=== PATIENT | male | born 1955 | race Caucasian/White ===

== ENCOUNTER 2017-05-10 09:04 | Outpatient (CLI) | payer BC ==
--- NOTE | 2017-05-10 10:55 | RAD ---
LUMBAR SPINE SERIES 4 VIEWS: HISTORY: Back pain with bilateral leg pain. FINDINGS: The vertebral bodies are normal in height. There is fairly pronounced disk narrowing at L3-4 and L4- 5. There is minimal retrolisthesis at both of these levels. The patient shows only limited motion i n flexion or extension. There are degenerative facet changes. Postop laminectomy changes are seen a t these levels. IMPRESSION: 1. Postoperative changes and degenerative changes at the L3-4 and L4-5 levels. 2. Minimal disk narrowing is also seen at L2-3. POS: ENZO
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
== END 2017-05-10 09:05 | disposition home or self-care (01) ==
LOC: TBSIIMAG 09:04
PROVIDERS: ATTEND Surgery
DX: M47.26 Other spondylosis with radiculopathy, lumbar region (principal); M54.6 Pain in thoracic spine; Z98.890 Other specified postprocedural states
CPT/HCPCS: 72120; 72146; 72158; 82565

== ENCOUNTER 2019-02-03 11:17 | Emergency (ER) | payer BC ==
[2019-02-03] MEDS ORDERED: Adacel (T-DAP) 0.5 ML SYRINGE ONE (11:45)
--- NOTE | 2019-02-03 11:57 | RAD ---
EXAM: 2 views of the right tibia/fibula HISTORY: Leg pain COMPARISON: None FINDINGS: There is no evidence of acute fracture or dislocation. No soft tissue swelling is seen. No degenerative changes are seen in the knee or ankle. IMPRESSION: No evidence of acute osseous abnormality.
== END 2019-02-03 12:15 | disposition home or self-care (01) ==
LOC: SCSER 11:17
DX: S81.811A Laceration without foreign body, right lower leg, initial encounter (principal); Z23 Encounter for immunization; W01.0XXA Fall on same level from slipping, tripping and stumbling without subsequent striking against object, initial encounter
CPT/HCPCS: 12002; 90471; 90715

== ENCOUNTER 2019-05-12 08:20 | Outpatient (CLI) | payer BC ==
--- NOTE | 2019-05-12 09:35 | RAD ---
4 views of lumbar spine: 05/12/2019 COMPARISON: 05/01/2015 HISTORY: Back pain FINDINGS: Lumbar pedicles appear intact on frontal imaging. There is prominent disc space narrowing w ith associated degenerative endplate change as well as anterior and posterior osteophyte formation at L4-5. There is disc space narrowing with degenerative endplate change at the L3-4 and L2-3 levels as well. Prominent facet hypertrophy present at L3-4 and L4-5. On the neutral lateral imaging there is retrolisthesis measuring 4-5 mm at L2-3 and L3-4. Extension imaging demonstrates retrolisthesis at L2-3 measuring 6-7 mm, L3-4 measuring 6 mm, and L4-5 measuring 5 mm. On the flexion imaging there is retrolisthesis at L2-3 measuring 3 mm and at L3-4 measuring 4 mm. No acute fracture. IMPRESSION: Prominent lower lumbar spine degenerative change, most significant at L4-5.
--- NOTE | 2019-05-12 09:38 | RAD ---
4 views cervical spine: 05/12/2019 COMPARISON: None HISTORY: Neck pain FINDINGS: Mild degenerative change at the atlantoaxial interspace. Mild disc space narrowing with deg enerative endplate change and anterior osteophyte formation at C5-6 and C6-7. There is no significant anterolisthesis or retrolisthesis noted on the lateral neutral, flexion, or extension frida ging. No prevertebral soft tissue swelling. Frontal imaging demonstrates bilateral facet hypertrophy at C5-6 and C6-7. There is also significant right-sided uncovertebral osteophyte formation at C5-6. Incompletely imaged upper thorax demonstrates upper thoracic spine dextroscoliosis, only partially imaged. IMPRESSION: Degenerative change as detailed above.
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
--- NOTE | 2019-05-12 14:21 | MRI ---
MRI CERVICAL SPINE WITH AND WITHOUT CONTRAST: 05/12/19 HISTORY: 63-year-old male with ICD-10: M54.2, cervicalgia. G95.9, myelopathy. COMPARISON: None. FINDINGS: The cervical spinal cord is normal in size and signal. No extrinsic cord impingement at any level. Ve rtebral body heights are maintained. Bilateral degenerative facet changes at all levels mostly mild, some mild/moderate. There is no abnormal enhancement or mass in the intramedullary, extramedullary-in tradural, or extradural, spaces. C1-2: No central stenosis. C2-3: No central or neural foraminal stenosis. C3-4: Small bilateral uncinate process osteophytes. No significant central stenosis. Mild bilateral n eural foraminal stenosis. C4-5: No central stenosis. Small bilateral uncinate process osteophytes. Mild to moderate right neura l foraminal stenosis. No left neural foraminal stenosis. C5-6: Prominent end plate bone marrow edema with enhancement, representing Modic type I changes. Mild disc space narrowing. Broad based disc-osteophytic bar complex encroaches upon the anterior aspect o f the spinal canal. Mild ligamentum flavum thickening encroaches upon the posterior aspect of the spi nal canal. Overall, mild to moderate degree of central spinal canal stenosis. Moderate sized bilatera l uncinate process osteophytes encroach upon the bilateral neural foramina, causing severe bilateral neural foraminal stenosis, right worse than left. C6-7: Mild disc space narrowing. Broad based disc-osteophytic bar complex encroaches upon the anterio r aspect of the spinal canal. Mild ligamentum flavum thickening encroaches upon the posterior aspect of the spinal canal. Overall, mild to moderate degree of central spinal canal stenosis. Moderate size d bilateral uncinate process osteophytes encroach upon the bilateral neural foramina, causing moderat e-severe bilateral neural foraminal stenosis, right worse than left. C7-T1: No central or neural foraminal stenosis. IMPRESSION: 1. Mild cervical spondylosis. 2. Mild degenerative disc disease at C5-6 and C6-7. 3. Modic type I end plate bone marrow edema at C5-6. 4. High grade bilateral neural foraminal stenosis at C6-7, and especially C5-6, right worse than left, including severe. POS: TPC
--- NOTE | 2019-05-12 14:37 | MRI ---
MRI THORACIC SPINE WITH AND WITHOUT CONTRAST: 05/12/19 HISTORY: Mid back pain. FINDINGS: There is anterior wedge deformity involving the T5 vertebra with loss of anterior height in the 25% r hebert. Mild anterior wedging at T6 and T7. Degenerative disc and end plate changes are seen at these levels. There is no vertebral body edema a t T5 that would indicate acute or subacute injury. The other thoracic vertebrae maintain normal height and exhibit normal signal. There is a kyphotic cu rvature with apex at T5-6. Mild posterior disc bulge at T5-6 and at T6-7 flatten the anterior thecal sac. There is slight imping ement on the anterior cord at both of these levels. There is thinning of the cord through this region and there is increased signal within the cord at this T5-6 region consistent with myelomalacia and c ord atrophy. No definite enhancement within the cord identified. No other evidence of significant disc bulge or disc protrusion at any of the thoracic levels. IMPRESSION: There is anterior wedge deformity at T5 and to a lesser degree at T6 with a kyphotic curvature with a pex at this level. No edema is seen within either of these vertebral bodies suggesting a stable wedge deformity. Mild posterior disc bulge at both of these levels impinge on the anterior cord. There is cord thinning and atrophy with myelomalacic change in the cord throughout this region from T5 through T6. POS: ENZO
== END 2019-05-12 08:21 | disposition home or self-care (01) ==
LOC: SCSMRI 08:20
PROVIDERS: ATTEND Surgery
DX: M47.26 Other spondylosis with radiculopathy, lumbar region (principal); M54.5 Low back pain; M54.2 Cervicalgia; M54.6 Pain in thoracic spine; G95.9 Disease of spinal cord, unspecified; M48.8X6 Other specified spondylopathies, lumbar region; M47.812 Spondylosis without myelopathy or radiculopathy, cervical region; M40.204 Unspecified kyphosis, thoracic region; M48.8X4 Other specified spondylopathies, thoracic region; M51.84 Other intervertebral disc disorders, thoracic region; M50.322 Other cervical disc degeneration at C5-C6 level; M50.323 Other cervical disc degeneration at C6-C7 level; M48.02 Spinal stenosis, cervical region; R60.0 Localized edema; Z98.890 Other specified postprocedural states
CPT/HCPCS: 72040; 72110; 72156; 72157; 72158

== ENCOUNTER 2019-08-16 06:37 | Outpatient (CLI) | payer BC, OTHER ==
[2019-08-16 11:32] LABS: Hemoglobin 16.2 g/dL (14.0-18.0); Mean Corpuscular Hemoglobin 32.7 pg (27.0-31.0); Mean Corpuscular Volume 95.9 fL (78.0-98.0); Mean Platelet Volume 8.9 fL (7.4-10.4); Platelet Count 182 thou/uL (130-400); RBC Distribution Width 12.4 % (11.5-14.5); Red Blood Cell (RBC) Count 4.96 mill/uL (4.70-6.10); White Blood Cell (WBC) Count 4.9 thou/uL (4.8-10.8)
[2019-08-16 11:39] LABS: INR-International Normal Ratio 0.9; PTT 30.2 SEC (22.9-36.1); Prothrombin Time 12.4 sec (12.0-14.7)
[2019-08-16 12:00] LABS: Anion Gap 12 mmol/L (10-20); BUN (Urea Nitrogen) 23 mg/dL (8.4-25.7); Calc. Creatinine Clearance 0 mL/min (70-130); Calcium 9.1 mg/dL (7.8-10.44); Carbon Dioxide 23 mmol/L (23-31); Chloride 108 mmol/L (98-107); Estimated GFR-MDRD Greater than 90; Glucose 90 mg/dL (80-115); Potassium 4.2 mmol/L (3.5-5.1); Sodium 139 mmol/L (136-145)
[2019-08-16 18:57] LABS: SARS-CoV-2 MS2 Positive; SARS-CoV-2 N Gene Negative; SARS-CoV-2 S Gene Negative; SARS-CoV-2 orf1ab Negative
--- NOTE | 2019-08-16 22:14 | EKG ---
Test Reason : Blood Pressure : / mmHG Vent. Rate : 069 BPM Atrial Rate : 069 BPM P-R Int : 170 ms QRS Dur : 092 ms QT Int : 404 ms P-R-T Axes : 004 005 033 degrees QTc Int : 432 ms Normal sinus rhythm Incomplete right bundle branch block Borderline ECG When compared with ECG of 23-MAY-2015 06:37, No significant change was found Confirmed by Edward FERNANDO ([id number]) on 08/16/2019 10:13:26 PM Referred By: SENTHIL Confirmed By:Edward FERNANDO
== END 2019-08-16 06:38 | disposition home or self-care (01) ==
LOC: LABBT 06:37
PROVIDERS: ATTEND Surgery
DX: Z01.818 Encounter for other preprocedural examination (principal); Z11.59 Encounter for screening for other viral diseases; M54.16 Radiculopathy, lumbar region; M48.062 Spinal stenosis, lumbar region with neurogenic claudication
CPT/HCPCS: 80048; 85027; 85610; 85730; 87635; 93005; 93010; U0003

== ENCOUNTER 2019-08-18 07:33 | Day surgery (SDC) | payer BC ==
[2019-08-16 10:21] VITALS: BMI 21.7
[2019-08-18] MEDS ORDERED: Thrombin 5000 UNITS/5 ML VIAL ONE (09:38)
[2019-08-18] MEDS ORDERED: Famotidine/PF 20 mg/2ml Vial ONE (10:33)
[2019-08-18] MEDS ORDERED: Fentanyl 100 MCG/2 ML VIAL ONE ×4 (10:33→13:42)
[2019-08-18] MEDS ORDERED: SUGAMMADEX SODIUM 200 MG/2 ML VIAL ONE (10:34)
[2019-08-18] MEDS ORDERED: Promethazine HCl 25 MG/ML VIAL SLOW IVP PRN (12:46)
[2019-08-18] MEDS ORDERED: Ondansetron HCl/PF 4 MG/2 ML Vial IVP PRN (12:46)
[2019-08-18] MEDS ORDERED: Promethazine HCl 25 MG/ML VIAL IM PRN (12:46)
[2019-08-18] MEDS ORDERED: HYDROcodone/Acetaminophen 7.5/325 mg Tablet PO PRN (13:23)
[2019-08-18] MEDS ORDERED: traMADol HCl 50 MG TAB PO PRN (13:23)
[2019-08-18] MEDS ORDERED: Mag-Al 1200 mg/1200 mg/30 ML UDCUP PO PRN (13:23)
[2019-08-18] MEDS ORDERED: Morphine 2 MG/ML SYRINGE SLOW IVP PRN (13:23)
[2019-08-18] MEDS ORDERED: Fleet Enema 133 ML BOT PR PRN (13:23)
[2019-08-18] MEDS ORDERED: Milk Of Magnesia 30 ML UDCUP PO PRN (13:23)
[2019-08-18] MEDS ORDERED: Bisacodyl 10 MG SUPP PR PRN (13:23)
[2019-08-18] MEDS ORDERED: Acetaminophen 325 MG TAB PO PRN (13:23)
[2019-08-18] MEDS ORDERED: Morphine 4 MG/ML VIAL ONE (13:35)
[2019-08-18] MEDS ORDERED: Morphine Sulfate 2 MG/ML SYRINGE SLOW IVP PRN (13:37)
[2019-08-18] MEDS ORDERED: PACU-Morphine 4MG/ML VIAL SLOW IVP PRN (13:37)
[2019-08-18] MEDS ORDERED: Morphine 2 MG/ML SYRINGE ONE ×4 (13:40→14:21)
--- NOTE | 2019-08-18 14:08 | RAD ---
EXAM: XR Lumbar Spine 2 Or 3 View PROVIDED CLINICAL HISTORY: Surgery COMPARISON: None FINDINGS: Lateral views of the lumbar spine were submitted. Instrumentation is noted at the dorsum of the lumba r spine. Extensive lumbar degenerative changes are seen. IMPRESSION: As above.
[2019-08-18] MEDS ORDERED: PHENYLEPHRINE-NS 100 MCG/ML 10 ML SYRINGE ONE (14:28)
[2019-08-18] MEDS ORDERED: Rocuronium Bromide 10 MG/ML (10ML VIAL) ONE (14:28)
[2019-08-18] MEDS ORDERED: PROPOFOL 200 MG/20 ML VIAL ONE (14:28)
[2019-08-18] MEDS ORDERED: EPHEDRINE 25 MG/5 ML SYRINGE ONE (14:28)
[2019-08-18] MEDS ORDERED: Metoclopramide HCl 10 MG/2 ML VIAL ONE (14:28)
[2019-08-18] MEDS ORDERED: Lidocaine 1% PF 5 ML VIAL ONE (14:28)
[2019-08-18] MEDS ORDERED: Dexamethasone 20 MG/5 ML VIAL ONE (14:28)
[2019-08-18] MEDS ORDERED: Glycopyrrolate 0.2 MG/ML 5 ML SYRINGE ONE (14:28)
[2019-08-18] MEDS ORDERED: Ketorolac Tromethamine 30 MG/ML VIAL ONE (14:28)
[2019-08-18] MEDS: tiZANidine HCl 4 MG TAB PO SCH ×2 (15:48→20:51)
[2019-08-18] MEDS: Sodium Chloride 0.9% 1,000 ML IV SCH (15:49)
[2019-08-18] MEDS: CEFAZOLIN 2 GM in Premix Bag 1 BAG IVPB SCH (17:57)
[2019-08-18] MEDS ORDERED: GLUC SU PO SCH (21:00)
[2019-08-18] MEDS ORDERED: CHONDRO SU A PO SCH (21:00)
[2019-08-18] MEDS ORDERED: VIT C PO SCH (21:00)
[2019-08-18] MEDS ORDERED: Tamsulosin HCl 0.4 MG CAP PO SCH (21:00)
[2019-08-18] MEDS ORDERED: Amitriptyline HCl 25 MG TAB PO SCH (21:00)
[2019-08-18] MEDS ORDERED: [UNRECOGNIZED DRUG - OTHER] PO SCH (21:00)
[2019-08-18] MEDS ORDERED: [UNRECOGNIZED DRUG - OTHER] PO SCH (21:00)
[2019-08-19] MEDS: CEFAZOLIN 2 GM in Premix Bag 1 BAG IVPB SCH
[2019-08-19] MEDS: Sodium Chloride 0.9% 1,000 ML IV SCH (04:01)
[2019-08-19 08:17] VITALS: BP 122/74; TEMP 97.9
[2019-08-19] MEDS: tiZANidine HCl 4 MG TAB PO SCH (08:28)
--- NOTE | 2019-08-19 08:28 | OP ---
DATE OF PROCEDURE: 08/18/2019 LOCATION: OR 5. [employer] TE[employer]ER: Sue Byrne PA-C PREPROCEDURE DIAGNOSIS: Lumbar stenosis with lumbar disk extrusion with low back and leg pain and progressive gait decline. POSTPROCEDURE DIAGNOSIS: Lumbar stenosis with lumbar disk extrusion with low back and leg pain and progressive gait decline. PROCEDURES: 1. Bilateral revision L2-L3 hemilaminotomies and foraminotomies with right L2-L3 diskectomy. Modifier 50 should be added to this surgery as this was a bilateral surgery. 2. Use of operative microscope for microdissection. DESCRIPTION OF PROCEDURE: After informed consent was obtained from the patient, the patient was brought to the OR. Proper patient, pause, and identification were carried out. He was placed under excellent general endotracheal anesthesia and positioned prone on the OR table. All appropriate points were padded. We identified the L2-L3 segment. This area was sterilely cleansed, prepared and draped, and the prior wound identified, and again sterilely cleansed, prepared and draped. Proper patient, pause, and identification were carried out. The wound was then opened with a combination of sharp, monopolar, and blunt dissection. We proceeded through scar tissue and identified the L2-L3 segment. Then, we did bilateral revision hemilaminotomies and foraminotomies with removal of bone spurring, but also working over the traversing right L3 nerve root, removed large fragments of disk extruded material. We had excellent decompression of the common dural tube, bilateral L2 nerve roots and bilateral L3 nerve roots. Hemostasis was maximized throughout and there was no spinal fluid leak. The wound was then closed in anatomic layers following sprinkling of vancomycin powder. The patient then emerged from anesthesia. Job ID: [id number]
--- NOTE | 2019-08-19 11:03 | DIS ---
DATE OF ADMISSION: 08/18/2019 DATE OF DISCHARGE: 08/19/2019 Mr. Monzon was admitted to [facility] on August 18, [address] Garnett with discharge date of August 19, 2019. ADMISSION DIAGNOSIS: Status post lumbar decompression. DISCHARGE DIAGNOSIS: Status post lumbar decompression. HOSPITAL COURSE: Mr. Monzon's hospital course was uncomplicated. The pain was well tolerated and controlled with our usual oral and IV medications. No additional consultations were ordered. The patient mobilized early and was discharged home with outpatient followup planned in 2 weeks. Job ID: [id number]
== END 2019-08-19 10:45 | disposition home or self-care (01) ==
LOC: SDC 07:33 → SURG B 13:31 → SDC 08-19 10:45
PROVIDERS: ATTEND Surgery
PROC: 0ST20ZZ Resection of Lumbar Vertebral Disc, Open Approach (ICD-10-PCS; principal; 2019-08-18)
PROC: 01NB0ZZ Release Lumbar Nerve, Open Approach (ICD-10-PCS; principal; 2019-08-18)
DX: M48.061 Spinal stenosis, lumbar region without neurogenic claudication (principal); M51.16 Intervertebral disc disorders with radiculopathy, lumbar region; Z79.899 Other long term (current) drug therapy; Z88.5 Allergy status to narcotic agent
CPT/HCPCS: 72100; J0690; J1100; J1885; J2001; J2270; J2704; J2765; J3010; J3370; S0028